=== PATIENT | female | born 1980 | race Hispanic/Latino ===

== ENCOUNTER 2018-03-12 17:43 | Inpatient (IN) | payer OTHER ==
--- NOTE | 2018-03-12 20:11 | Emergency Department Report ---
ED Chest Pain HPI - General Chief Complaint: Chest Pain Stated Complaint: CHEST PAIN Time Seen by Provider: 03/12/18 19:42 Source: patient, EMS Mode of arrival: Stretcher Limitations: No Limitations - History of Present Illness Initial Comments: 38-year-old female presents to the emergency department by EMS from home with complaint of a previous syncopal episode followed by chest pain. The patient says that she was walking around at home and passed out and woke up in her vomit and was incontinent of urine. Shortly after this she began having some midsternal to left-sided chest pain with some radiation towards the left shoulder and the left jaw that started around 4 PM this evening. EMS gave her 325 mg of aspirin and 2 sublingual nitroglycerin which improved but did not resolve her discomfort. She said earlier, prior to passing out, she "felt funny " and checked her blood sugar and it was about 240. She has a history of non- insulin dependent diabetes, Multiple sclerosis, hypertension. She also has a family history of early cardiac disease and says that her mother had her first heart attack in her 30s. She had a stress test many years ago but nothing recently. 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 She also complains of some associated diaphoresis. No recent travel or sick contacts at home. - Related Data Allergies Allergy/AdvReac Type Severity Reaction Status Date / Time Penicillins Allergy Unknown Verified 03/12/18 19:18 Heart Score - HEART Score History: Moderately suspicious EKG: Normal Age: < 45 Risk factors: > 3 risk factors or hx of atherosclerotic disease Troponin: < normal limit HEART Score: 3 - Critical Actions Critical Actions: 0-3 pts:0.9-1.7%risk of adverse cardiac event.Candidate for discharge ED Review of Systems ROS: Stated complaint: CHEST PAIN Other details as noted in HPI Comment: All other systems reviewed and negative Constitutional: denies: chills, fever Eyes: denies: eye pain, eye discharge, vision change ENT: denies: ear pain, throat pain Respiratory: denies: cough, wheezing Cardiovascular: chest pain, syncope Gastrointestinal: vomiting. denies: abdominal pain Genitourinary: denies: dysuria, discharge Musculoskeletal: arthralgia. denies: back pain Skin: denies: rash, lesions Neurological: denies: headache, weakness, paresthesias ED Past Medical Hx - Past Medical History Previous Medical History?: Yes Hx Hypertension: Yes Hx Diabetes: Yes - Surgical History Additional Surgical History: tonselectomy, gallbladder, wisdom teeth extraction - Social History Smoking Status: Never Smoker ED Physical Exam - General Limitations: No Limitations - Other Other exam information: GENERAL: The patient is well-developed well-nourished. HENT: Normocephalic. Atraumatic. Patient has moist mucous membranes. EYES: Extraocular motions are intact. Pupils equal reactive to light bilaterally. NECK: Supple. Trach is midline. CHEST/LUNGS: Clear to auscultation. There is no respiratory distress noted. HEART/CARDIOVASCULAR: Regular. There is no tachycardia. There is no murmur. ABDOMEN: Abdomen is soft, nontender. Patient has normal bowel sounds. Obese habitus. SKIN: Skin is warm and dry. Patient has some generalized urticaria. NEURO: The patient is awake, alert, and oriented. The patient is cooperative. The patient has no focal neurologic deficits. The patient has normal speech. MUSCULOSKELETAL: There is no tenderness or deformity. There is no limitation range of motion. There is no evidence of acute injury. ED Course Vital Signs 03/12/18 03/12/18 03/12/18 19:07 19:15 19:18 Temperature 98.9 F Pulse Rate 90 93 H Respiratory 15 16 Rate Blood Pressure 132/76 146/110 O2 Sat by Pulse 99 99 100 Oximetry 03/12/18 03/12/18 03/12/18 19:23 19:30 19:45 Temperature Pulse Rate 90 95 H Respiratory 19 26 H 15 Rate Blood Pressure 136/79 136/79 O2 Sat by Pulse 97 97 97 Oximetry 03/12/18 03/12/18 03/12/18 20:01 20:15 20:31 Temperature Pulse Rate 95 H 98 H 104 H Respiratory 24 14 12 Rate Blood Pressure 169/81 169/81 150/92 O2 Sat by Pulse 98 99 Oximetry 03/12/18 03/12/18 03/12/18 20:45 21:01 21:15 Temperature Pulse Rate 99 H 95 H 101 H Respiratory 18 13 20 Rate Blood Pressure 150/92 149/86 149/86 O2 Sat by Pulse 98 98 97 Oximetry 03/12/18 03/12/18 03/12/18 21:31 21:45 22:00 Temperature Pulse Rate 102 H 100 H 100 H Respiratory 16 16 27 H Rate Blood Pressure 133/76 133/76 133/76 O2 Sat by Pulse 99 98 96 Oximetry 03/12/18 03/12/18 03/12/18 22:15 22:31 22:45 Temperature Pulse Rate 105 H 93 H 104 H Respiratory 15 14 17 Rate Blood Pressure 133/76 135/51 135/51 O2 Sat by Pulse 99 96 97 Oximetry 03/12/18 03/12/18 03/12/18 23:01 23:15 23:30 Temperature Pulse Rate 113 H 101 H 104 H Respiratory 22 17 22 Rate Blood Pressure 135/51 135/51 135/51 O2 Sat by Pulse 99 98 Oximetry 03/13/18 00:01 Temperature Pulse Rate Respiratory Rate Blood Pressure 141/54 O2 Sat by Pulse 98 Oximetry TAMMI score - Tammi Score Age > 65: (0) No Aspirin use within the Past 7 Days: (0) No 3 or more CAD Risk Factors: (1) Yes 2 or more Angina events in past 24 hrs: (1) Yes Known CAD with more than 50% Stenosis: (0) No Elevated Cardiac Markers: (0) No ST Deviation Greater than 0.5mm: (0) No TAMMI Score: 2 ED Medical Decision Making - Lab Data Result diagrams: 03/12/18 19:47 03/12/18 19:47 - EKG Data -: EKG Interpreted by Me EKG shows normal: sinus rhythm, axis, intervals, QRS complexes, ST-T waves Rate: normal - EKG Data When compared to previous EKG there are: previous EKG unavailable Interpretation: normal EKG - Radiology Data Radiology results: image reviewed interpreted by me: Chest x-ray does not show any acute process. There are no pleural effusions, obvious pneumonia and there is no pneumothorax. - Medical Decision Making Patient had a syncopal episode in which she ended up in her own urine and vomited on the floor. She has no history of seizures but this could've been a seizure. However shortly after waking up she began having the chest pain which has continued through her ED course. EKG does not show any signs of ST elevation HI or ischemia or dysrhythmia. 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 Patient does appear to spontaneously develop some urticaria throughout her body. Negative d- dimer. Chest x-ray does not show any acute process. However the patient has a history of hypertension, diabetes and a family history of early coronary artery disease and cardiac events and her mother. She has not had any recent stress test. From all of these reasons patient has been admitted to the hospital for further evaluation and has been accepted for admission by the hospitalist, Dr Mendoza. - Differential Diagnosis HI, PE, Dysrythmia, MS, vasovagal, seizures Critical Care Time: No Critical care attestation.: If time is entered above; I have spent that time in minutes in the direct care of this critically ill patient, excluding procedure time. ED Disposition Clinical Impression: Syncope Qualifiers: Syncope type: unspecified Qualified Code(s): R55 - Syncope and collapse Chest pain Qualifiers: Chest pain type: unspecified Qualified Code(s): R07.9 - Chest pain, unspecified Disposition: 09 OP ADMIT IP TO THIS HOSP Is pt being admited?: Yes Condition: Stable Time of Disposition: 01:20
[2018-03-12 20:37] LABS: INR 0.81 (0.87-1.13); Partial Thromboplastin Time 26.4 Sec. (24.2-36.6)
[2018-03-12] MEDS ORDERED: MORPHINE IV ONE (20:50)
[2018-03-12 21:39] LABS: Hematocrit 41.2 % (30.3-42.9); Hemoglobin 13.8 gm/dl (10.1-14.3); Mean Corpuscular HGB Conc 34 % (30-34); Mean Corpuscular Hemoglobin 28 pg (28-32); Mean Corpuscular Volume 85 fl (79-97); Platelet Count 430 K/mm3 (140-440); Red Blood Count 4.85 M/mm3 (3.65-5.03); Red Cell Distribution Width 14.9 % (13.2-15.2)
[2018-03-12] MEDS ORDERED: BENADRYL ONE (21:46)
[2018-03-12 21:50] LABS: BUN/Creatinine Ratio 19; Blood Urea Nitrogen 13 mg/dL (7-17); Hemolysis Index 47
--- NOTE | 2018-03-12 21:55 | XRay Report ---
FINAL REPORT PROCEDURE: Chest. TECHNIQUE: Portable AP view. HISTORY: Chest pain. COMPARISON: No prior studies are available for comparison. FINDINGS: The heart and mediastinum appear normal. The lungs are clear and well expanded. There are no pleural effusions. The soft tissues and regional skeleton are unremarkable. IMPRESSION: Negative portable chest.
[2018-03-12 22:25] LABS: Basophils % (Manual) 0 % (0.0-1.8); Eosinophils % (Manual) 0 % (0.0-4.3); Large Platelets 1+; Platelet Estimate Consistent w Auto; RBC Morphology Normal; Total Cells Counted 100
[2018-03-12] MEDS ORDERED: PEPCID IV ONE (22:59)
[2018-03-12] MEDS ORDERED: BENADRYL IV ONE (23:03)
[2018-03-12] MEDS ORDERED: MORPHINE IV PRN (23:39)
[2018-03-12] MEDS ORDERED: ZOFRAN IV PRN (23:40)
[2018-03-12] MEDS ORDERED: TYLENOL PO PRN (23:40)
[2018-03-12] MEDS ORDERED: BENADRYL IV PRN (23:44)
[2018-03-12] MEDS ORDERED: NACL 0.9% 1000 ML 1,000 ML IV SCH (23:45)
[2018-03-12] MEDS ORDERED: HumuLIN R SUB-Q SCH (23:45)
[2018-03-12] MEDS ORDERED: D50W (25GM) Syringe IV PRN (23:47)
[2018-03-12] MEDS ORDERED: ATIVAN IV ONE (23:49)
[2018-03-13] MEDS: HEPARIN SUB-Q SCH ×2 (00:08→22:37)
[2018-03-13] MEDS: NITRO-BID 2% TP SCH ×5 (00:10→19:05)
[2018-03-13 02:17] LABS: Creatine Kinase MB 1.1 ng/mL (0.0-4.0)
[2018-03-13] MEDS: HumuLIN R SUB-Q SCH ×5 (03:36→22:55)
[2018-03-13 08:54] LABS: Creatine Kinase MB 1.1 ng/mL (0.0-4.0)
[2018-03-13] MEDS ORDERED: LEXISCAN IV NR (09:45)
[2018-03-13] MEDS ORDERED: NACL 0.9% 1000 ML 1,000 ML IV SCH (10:00)
--- NOTE | 2018-03-13 12:58 | Cat Scan Report ---
CT HEAD WITHOUT CONTRAST: HISTORY: Syncope. TECHNIQUE: Sequential 2.5mm CT images. COMPARISON: none. FINDINGS: Cerebral Parenchyma: Within normal limits. Cerebellum: Within normal limits. Brainstem: Within normal limits. Ventricles: Normal. Sella: Normal. Extra-axial spaces: Normal. Basal Cisterns: Normal. Intracranial Hemorrhage: None. Midline Shift: None. Calvarium: Normal. Sinuses: Normal. Mastoid Air Cells: Normal. Visualized Orbits: Normal. IMPRESSION: Cranial CT scan within normal limits.
[2018-03-13] MEDS: ASPIRIN PO SCH (15:11)
[2018-03-13] MEDS: MORPHINE IV PRN (15:15)
--- NOTE | 2018-03-13 16:18 | Consultation ---
History of Present Illness Consult date: 03/13/18 Requesting physician: PHIL MILLER Reason for Consult: syncope with incontinence Chief complaint: syncope with incontinence History of present illness: This 38-year-old right-handed white female per ER MD: "says that she was walking around at home and passed out and woke up in her vomit and was incontinent of urine. Shortly after this she began having some midsternal to left-sided chest pain with some radiation towards the left shoulder and the left jaw that started around 4 PM this evening. EMS gave her 325 mg of aspirin and 2 sublingual nitroglycerin which improved but did not resolve her discomfort. She said earlier, prior to passing out, she "felt funny" and checked her blood sugar and it was about 240. She has a history of non-insulin dependent diabetes, Multiple sclerosis, hypertension. She also has a family history of early cardiac disease and says that her mother had her first heart attack in her 30s. She had a stress test many years ago but nothing recently. 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 She also complains of some associated diaphoresis. No recent travel or sick contacts at home." Says she had blurred vision for 2 days and yesterday felt funny and found her glucose was high, got up to go to the bathroom to urinate and had graying out of her vision and blacked out with vomiting and incontinence. She has fainted in the past perhaps to low blood sugar over a year ago. Blood pressure at home is usually been 120/60 but was 180 systolic she says yesterday in the ER. She says the pain in the chest felt like someone kicked her and she still had the pain until 1 AM this morning. She has a diagnosis of MS with her last attack 3 months ago when she could not walk or see and was told she had optic neuritis and was treated for 4 days with intravenous steroids at [facility]. MS was diagnosed in 2000 when she fell because her legs gave out. LP was positive. She was treated with IV steroids then and several other times over the years. She's been on multiple MS medications in the past including Avonex, Betaseron and Copaxone and lost her insurance 10 years ago. She thinks she did best on Copaxone which got rid of jerking in the legs. Brain CT scan shows only mild atrophy. Takes probiotic, multipack vitamin and turmeric. 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 denies: alcohol abuse (thanks alcohol once or twice a year), prescription drug abuse, IV drug use (marijuana in the past but not recently) Family history: stroke (in her mother), other (no MS or other neuromuscular disease. Epilepsy in her mother.) Medications and Allergies Allergies Allergy/AdvReac Type Severity Reaction Status Date / Time Penicillins Allergy Unknown Verified 03/12/18 19:18 Home Medications Medication Instructions Recorded Confirmed Last Taken Type No Known Home Medications [No 03/13/18 03/13/18 Unknown History Reported Home Medications] Active Meds: Active Medications Acetaminophen (Tylenol) 650 mg PO Q4H PRN PRN Reason: For Pain/Fever/Headache Aspirin (Aspirin) 325 mg PO QDAY [facility] Last Admin: 03/13/18 15:11 Dose: 325 mg Dextrose (D50w (25gm) Syringe) 50 ml IV PRN PRN PRN Reason: Hypoglycemia Diphenhydramine HCl (Benadryl) 25 mg IV Q6H PRN PRN Reason: Rash Last Admin: 03/13/18 00:10 Dose: 25 mg Heparin Sodium (Porcine) (Heparin) 5,000 unit SUB-Q Q12HR [facility] Last Admin: 03/13/18 00:08 Dose: 5,000 unit Sodium Chloride (Nacl 0.9% 1000 Ml) 1,000 mls @ 999 mls/hr IV DIRECT [facility] Insulin Human Regular (Humulin R) 0 units SUB-Q Q4HR [facility]; Protocol Last Admin: 03/13/18 06:54 Dose: Not Given Methylprednisolone Sodium Succinate (Solu-Medrol) 60 mg IV Q8HR [facility] Last Admin: 03/13/18 15:12 Dose: 60 mg Morphine Sulfate (Morphine) 2 mg IV Q5MIN PRN PRN Reason: Chest Pain Last Admin: 03/13/18 00:10 Dose: 2 mg Nitroglycerin (Nitro-Bid 2%) 0.5 inch TP QIDNTG [facility]; Protocol Last Admin: 03/13/18 15:11 Dose: 0.5 inch Ondansetron HCl (Zofran) 4 mg IV Q8H PRN PRN Reason: Nausea And Vomiting Review of Systems All systems: negative (vital headaches with nausea and photophobia about every 2 weeks for which she takes ibuprofen but in the past had success using Maxalt. No dizziness or snoring though naps 10 to 180 min at times but not daily, not dozing off other times, not sleepy driving. Leg jerks at times during the day. Some short-term memory and remote memory problems for the past 5 years. He has had some left leg spasms for 6 months.) Physical Examination - Vital Signs Vital Signs: Vital Signs Pulse Ox 99 03/12/18 19:07 - Physical Exam Narrative exam: General Appearance: well developed and moderately obese (per BMI) early 40s white female in [facility], seen with her friend and the friend's daughter. HEENT: atraumatic, normocephalic; no bruits, 2+ Luke without soreness or induration or enlargement, sclerae nonicteric. Oropharynx pink and moist. Neck: supple, no bruits. Heart: no murmur or extra sounds. Extremities: no clubbing, cyanosis or edema. 2+ dorsalis pedis pulses bilaterally. Neurologic Exam: Mental Status: Awake, alert, oriented X 3 though initially gives the year as 2019 and corrects it when I echo her 2019, speech is clear, names pen and tip of pen, and abstracts well. Names President and after Kalen gives Secretary Office Clerk , no right-left confusion, gets 2 of 3 objects at 3 minutes, spells WORLD backwards correctly. Cranial Nerves: peacock full left eye but cannot even see hand waving in the right eye due to the previous optic neuritis she said, no papilledema and disks are not pale, SVPs present, right pupil larger than left but both react to light and to accommodation without Vanessa's, EOMs full without nystagmus or diplopia, facial sensation decreased to light touch on the right but intact to pinprick, no facial weakness, Gipson is midline, palate rises symmetrically to phonation OR gags are positive, shoulder shrug is 5 X 2, tongue protrudes midline. Cerebellar: finger to nose and heel to cullen are normal. Sensory: Decreased to light touch on the right, pinprick decreased below elbows and right leg, absent vibrations right foot. Double simultaneous stimulation is intact. Motor Exam Upper Extremities: no drift or pronation, Manuel intact. Analytical Tech are 5 X 2, tone is normal. No atrophy or fasciculations are noted visually. Motor Exam Lower Extremities: no leg lag, quadriceps and anterior tibials and gastrocnemius are 5 left and 4+ right. Manuel are slow bilaterally but especially on the left. Tone is normal. No atrophy or fasciculations are noted visually. Reflexes: Palmomental and snout are negative but jaw jerk is positive. Triceps , biceps and brachioradialis are 2+ bilaterally. Kenisha's is negative bilaterally. Knee jerks are 2+ and ankle jerks are 2 bilaterally without clonus. Toes are upgoing right and slightly upgoing left to Babinski testing. Results - Laboratory Findings CBC and BMP: 03/12/18 19:47 03/12/18 19:47 Abnormal Lab Findings: Abnormal Labs 03/12/18 03/12/18 03/12/18 19:47 19:47 20:02 WBC 18.0 H Monocytes % (Manual) 9.0 H Seg Neutrophils # Man 11.0 H Monocytes # (Manual) 1.6 H PT 11.6 L INR 0.81 L Carbon Dioxide 20 L POC Glucose 03/13/18 03/13/18 03/13/18 02:34 06:29 12:28 WBC Monocytes % (Manual) Seg Neutrophils # Man Monocytes # (Manual) PT INR Carbon Dioxide POC Glucose 204 H 208 H 200 H Assessment and Plan Impression: 1. Syncope 2. Multiple sclerosis, relapsing remitting Plan: 1. Suggest cardiology consultation for syncope. May need 48 hour Holter or even 30 day event monitoring. 2. I have ordered EEG. Will add EEG preliminary reading in separate report. I told her if epileptiform, would start an antiepileptic drug (AED). 3. I have ordered MRI noncontrast. 4. Ordered vitamin D 25-OH since goal in MS is to get level to 80 or more for prevention of MS attacks. I told her if discharged, to take OTC 5000 unit vitamin D3 daily. 45 minutes spent today with this patient including discussion of use of vitamin D while not having insurance. Thank you for an interesting consultation on this pleasant early 40s lady. Will sign off, call if unusual brain MRI findings or unusual echo findings. Should be referred as outpatient to a neurologist at least if she gets disability coverage.
[2018-03-13] MEDS ORDERED: PROAIR IH PRN (16:45)
--- NOTE | 2018-03-13 16:49 | Progress Note ---
Assessment and Plan Assessment and plan: 38-year-old female with past medical history significant for diabetes mellitus, MS presented to the emergency department with complaints of passed out , woke up on her stool, patient was incontinent to urine at that time. patient said had mild confusion after that. Her BF called 911 and she presented to [facility]. patient also complains substernal chest pain Syncope/passed out - Could be seizure, vasovagal or MS flare, patient is on IV Solu-Medrol - CT head was negative, neurology consulted and ordered EEG, MRI/MRA - We'll follow the results Chest pain - Cardiac enzymes are negative - EKG normal sinus rhythm, stress test is pending Diabetes mellitus - Continue sliding scale insulin, ADA diet, adjust as needed Leukocytosis - Could be reactive or steroid-induced - We'll follow DVT prophylaxis - Heparin History Interval history: Patient was seen and evaluated, patient said she still feels some tightness in the chest Hospitalist Physical - Physical exam Narrative exam: Not in cardiopulmonary distress. The patient is obese. Vital signs as documented. Head exam is unremarkable. No scleral icterus . Neck is without jugular venous distension, thyromegaly, or carotid bruits. Lungs are clear to auscultation. Cardiac exam reveals regular rate and Rhythm. First and second heart sounds normal. No murmurs, rubs or gallops. Abdominal exam reveals normal bowel sounds, no masses, no organomegaly and no aortic enlargement. Extremities are nonedematous and both femoral and pedal pulses are normal. CAT SCAN TECH: Alert and oriented 3. No focal weakness. - Constitutional Vitals: Temp Pulse Resp BP Pulse Ox 98.2 F 85 20 104/60 97 03/13/18 15:31 03/13/18 15:31 03/13/18 15:31 03/13/18 15:31 03/13/18 15:31 Results - Labs CBC & Chem 7: 03/12/18 19:47 03/12/18 19:47 Labs: Laboratory Last Values WBC 18.0 K/mm3 (4.5-11.0) H 03/12/18 19:47 RBC 4.85 M/mm3 (3.65-5.03) 03/12/18 19:47 Hgb 13.8 gm/dl (10.1-14.3) 03/12/18 19:47 Hct 41.2 % (30.3-42.9) 03/12/18 19:47 MCV 85 fl (79-97) 03/12/18 19:47 MCH 28 pg (28-32) 03/12/18 19:47 MCHC 34 % (30-34) 03/12/18 19:47 RDW 14.9 % (13.2-15.2) 03/12/18 19:47 Plt Count 430 K/mm3 (140-440) 03/12/18 19:47 Lymph % (Auto) Medical Director Occupational Health 03/12/18 19:47 Johnston % (Auto) Medical Director Occupational Health 03/12/18 19:47 Eos % (Auto) Medical Director Occupational Health 03/12/18 19:47 Baso % (Auto) Medical Director Occupational Health 03/12/18 19:47 Lymph # Medical Director Occupational Health 03/12/18 19:47 Johnston # Medical Director Occupational Health 03/12/18 19:47 Eos # Medical Director Occupational Health 03/12/18 19:47 Baso # Medical Director Occupational Health 03/12/18 19:47 Add Manual Diff Complete 03/12/18 19:47 Total Counted 100 03/12/18 19:47 Seg Neutrophils % Medical Director Occupational Health 03/12/18 19:47 Seg Neuts % (Manual) 61.0 % (40.0-70.0) 03/12/18 19:47 Band Neutrophils % 0 % 03/12/18 19:47 Lymphocytes % (Manual) 30.0 % (13.4-35.0) 03/12/18 19:47 Reactive Lymphs % (Man) 0 % 03/12/18 19:47 Monocytes % (Manual) 9.0 % (0.0-7.3) H 03/12/18 19:47 Eosinophils % (Manual) 0 % (0.0-4.3) 03/12/18 19:47 Basophils % (Manual) 0 % (0.0-1.8) 03/12/18 19:47 Metamyelocytes % 0 % 03/12/18 19:47 Myelocytes % 0 % 03/12/18 19:47 Promyelocytes % 0 % 03/12/18 19:47 Blast Cells % 0 % 03/12/18 19:47 Nucleated RBC % Not Reportable 03/12/18 19:47 Seg Neutrophils # Medical Director Occupational Health 03/12/18 19:47 Seg Neutrophils # Man 11.0 K/mm3 (1.8-7.7) H 03/12/18 19:47 Band Neutrophils # 0.0 K/mm3 03/12/18 19:47 Lymphocytes # (Manual) 5.4 K/mm3 (1.2-5.4) 03/12/18 19:47 Abs React Lymphs (Man) 0.0 K/mm3 03/12/18 19:47 Monocytes # (Manual) 1.6 K/mm3 (0.0-0.8) H 03/12/18 19:47 Eosinophils # (Manual) 0.0 K/mm3 (0.0-0.4) 03/12/18 19:47 Basophils # (Manual) 0.0 K/mm3 (0.0-0.1) 03/12/18 19:47 Metamyelocytes # 0.0 K/mm3 03/12/18 19:47 Myelocytes # 0.0 K/mm3 03/12/18 19:47 Promyelocytes # 0.0 K/mm3 03/12/18 19:47 Blast Cells # 0.0 K/mm3 03/12/18 19:47 WBC Morphology Not Reportable 03/12/18 19:47 Hypersegmented Neuts Not Reportable 03/12/18 19:47 Hyposegmented Neuts Not Reportable 03/12/18 19:47 Hypogranular Neuts Not Reportable 03/12/18 19:47 Smudge Cells Not Reportable 03/12/18 19:47 Toxic Granulation Not Reportable 03/12/18 19:47 Toxic Vacuolation Not Reportable 03/12/18 19:47 Dohle Bodies Not Reportable 03/12/18 19:47 Pelger-Huet Anomaly Not Reportable 03/12/18 19:47 Peyman Rods Not Reportable 03/12/18 19:47 Platelet Estimate Consistent w auto 03/12/18 19:47 Clumped Platelets Not Reportable 03/12/18 19:47 Plt Clumps, EDTA Not Reportable 03/12/18 19:47 Large Platelets 1+ 03/12/18 19:47 Giant Platelets Not Reportable 03/12/18 19:47 Platelet Satelliting Not Reportable 03/12/18 19:47 Plt Morphology Comment Not Reportable 03/12/18 19:47 RBC Morphology Normal 03/12/18 19:47 Dimorphic RBCs Not Reportable 03/12/18 19:47 Polychromasia Not Reportable 03/12/18 19:47 Hypochromasia Not Reportable 03/12/18 19:47 Poikilocytosis Not Reportable 03/12/18 19:47 Anisocytosis Not Reportable 03/12/18 19:47 Microcytosis Not Reportable 03/12/18 19:47 Macrocytosis Not Reportable 03/12/18 19:47 Spherocytes Not Reportable 03/12/18 19:47 Pappenheimer Bodies Not Reportable 03/12/18 19:47 Sickle Cells Not Reportable 03/12/18 19:47 Target Cells Not Reportable 03/12/18 19:47 Tear Drop Cells Not Reportable 03/12/18 19:47 Ovalocytes Not Reportable 03/12/18 19:47 Helmet Cells Not Reportable 03/12/18 19:47 Felipe-Chenoweth Bodies Not Reportable 03/12/18 19:47 Derry Rings Not Reportable 03/12/18 19:47 Fletcher Cells Not Reportable 03/12/18 19:47 Bite Cells Not Reportable 03/12/18 19:47 Crenated Cell Not Reportable 03/12/18 19:47 Elliptocytes Not Reportable 03/12/18 19:47 Acanthocytes (Spur) Not Reportable 03/12/18 19:47 Rouleaux Not Reportable 03/12/18 19:47 Hemoglobin C Crystals Not Reportable 03/12/18 19:47 Schistocytes Not Reportable 03/12/18 19:47 Malaria parasites Not Reportable 03/12/18 19:47 Brian Bodies Not Reportable 03/12/18 19:47 Hem Pathologist Commnt No 03/12/18 19:47 PT 11.6 Sec. (12.2-14.9) L 03/12/18 20:02 INR 0.81 (0.87-1.13) L 03/12/18 20:02 APTT 26.4 Sec. (24.2-36.6) 03/12/18 20:02 D-Dimer < 135.0 ng/mlDDU (0-234) 03/12/18 20:57 Sodium 140 mmol/L (137-145) 03/12/18 19:47 Potassium 4.1 mmol/L (3.6-5.0) 03/12/18 19:47 Chloride 102.7 mmol/L (98-107) 03/12/18 19:47 Carbon Dioxide 20 mmol/L (22-30) L 03/12/18 19:47 Anion Gap 21 mmol/L 03/12/18 19:47 BUN 13 mg/dL (7-17) 03/12/18 19:47 Creatinine 0.7 mg/dL (0.7-1.2) 03/12/18 19:47 Estimated GFR > 60 ml/min 03/12/18 19:47 BUN/Creatinine Ratio 19 % 03/12/18 19:47 Glucose 89 mg/dL (65-100) 03/12/18 19:47 POC Glucose 169 (70-105) H 03/13/18 16:13 Calcium 9.0 mg/dL (8.4-10.2) 03/12/18 19:47 Total Creatine Kinase 47 units/L (30-135) 03/13/18 08:03 CK-MB (CK-2) 1.1 ng/mL (0.0-4.0) 03/13/18 08:03 CK-MB (CK-2) Rel Index 2.3 (0-4) 03/13/18 08:03 Troponin T < 0.010 ng/mL (0.00-0.029) 03/13/18 08:03
[2018-03-13] MEDS ORDERED: PROVENTIL IH PRN (17:00)
--- NOTE | 2018-03-13 17:02 | Electroencephalogram Report ---
Electroencephalogram EEG Date of exam: 03/13/18 Description: There is 9-10 Hz alpha activity in the posterior leads and some anterior beta activity. Eye movement artifacts are seen. No epileptiform activity. Interpretation: EEG preliminary reading: normal waking EEG.
[2018-03-13] MEDS: HABITROL TD SCH (17:42)
[2018-03-13] MEDS ORDERED: XANAX PO ONE (18:10)
[2018-03-14] MEDS: HumuLIN R SUB-Q SCH ×5 (02:30→22:50)
[2018-03-14] MEDS: NITRO-BID 2% TP SCH ×4 (06:44→19:48)
[2018-03-14 07:07] LABS: Basophils # (Auto) 0.1 K/mm3 (0.0-0.1); Basophils % (Auto) 0.5 % (0.0-1.8); Hemoglobin 12.8 gm/dl (10.1-14.3); Lymphocytes # (Auto) 1.5 K/mm3 (1.2-5.4); Lymphocytes % (Auto) 8.2 % (13.4-35.0); Mean Corpuscular HGB Conc 34 % (30-34); Mean Corpuscular Hemoglobin 28 pg (28-32); Mean Corpuscular Volume 84 fl (79-97); Monocytes # (Auto) 0.5 K/mm3 (0.0-0.8); Monocytes % (Auto) 2.6 % (0.0-7.3); Platelet Count 379 K/mm3 (140-440); Red Blood Count 4.51 M/mm3 (3.65-5.03); Red Cell Distribution Width 14.8 % (13.2-15.2)
[2018-03-14 07:36] LABS: BUN/Creatinine Ratio 24; Blood Urea Nitrogen 12 mg/dL (7-17); Calcium 8.6 mg/dL (8.4-10.2); Hemolysis Index 2
--- NOTE | 2018-03-14 08:57 | Treadmill Report ---
STRESS TEST ORDERING PHYSICIAN: Dr. Damion Ferrara. INDICATION: Chest pain. FINDINGS: There is no scintigraphic evidence of myocardial ischemia. The left ventricle is normal in size and systolic function. The left ventricular ejection fraction is measured at 62%. Normal wall motion and wall thickening is noted on gated imaging. CONCLUSION: Normal perfusion scan. MTDD
[2018-03-14] MEDS: ASPIRIN PO SCH (09:20)
[2018-03-14] MEDS: HABITROL TD SCH (09:20)
[2018-03-14] MEDS: HEPARIN SUB-Q SCH ×2 (09:20→22:50)
[2018-03-14] MEDS: MORPHINE IV PRN ×2 (12:22→18:45)
[2018-03-14] MEDS ORDERED: ATIVAN IV NR (13:02)
--- NOTE | 2018-03-14 15:30 | Magnetic Resonance Report ---
MRI BRAIN WITHOUT CONTRAST: 03/12/18 23:30:00 CLINICAL: History of MS. Syncopal episode. TECHNIQUE: Axial diffusion, T1, T2, gradient echo T2*, coronal and axial FLAIR, and sagittal T1 sequences on a 1.5 Katie magnet. FINDINGS: The ventricles are normal size. Mild enlargement of frontal and temporal lobe sulci.. No restricted diffusion and no abnormal signal. No mass or mass effect. No hemorrhage, edema or extra-axial collection. Normal pituitary and optic chiasm. The brainstem and cerebellum are normal. Intact vascular flow voids. Normal sinuses. The orbits, and soft tissues are normal. Normal calvarium and skull base. IMPRESSION: 1. Mild frontal and temporal lobe cortical atrophy. 2. No acute change. 3. No MS lesions identified.
--- NOTE | 2018-03-14 17:03 | Progress Note ---
Assessment and Plan Assessment and plan: 38-year-old female with past medical history significant for diabetes mellitus, MS presented to the emergency department with complaints of passed out , woke up on her stool, patient was incontinent to urine at that time. patient said had mild confusion after that. Her BF called 911 and she presented to [facility]. patient also complains substernal chest pain Syncope/passed out - Could be seizure, vasovagal or MS flare, patient is on IV Solu-Medrol - CT head was negative, neurology consulted and ordered EEG, MRI/MRA - EEG showed no seizure activity - Neurology recommended cardiac cause of syncope and cardiology consulted. Chest pain - Cardiac enzymes are negative - EKG normal sinus rhythm, stress test is pending Diabetes mellitus - Continue sliding scale insulin, ADA diet, adjust as needed Leukocytosis - Could be reactive or steroid-induced - We'll follow DVT prophylaxis - Heparin History Interval history: Patient was seen and evaluated, patient denied chest pain, or syncope after admission. Hospitalist Physical - Physical exam Narrative exam: Not in cardiopulmonary distress. The patient is obese. Vital signs as documented. Head exam is unremarkable. No scleral icterus . Neck is without jugular venous distension, thyromegaly, or carotid bruits. Lungs are clear to auscultation. Cardiac exam reveals regular rate and Rhythm. First and second heart sounds normal. No murmurs, rubs or gallops. Abdominal exam reveals normal bowel sounds, no masses, no organomegaly and no aortic enlargement. Extremities are nonedematous and both femoral and pedal pulses are normal. MATERIAL PLANNING ANALYST: Alert and oriented 3. No focal weakness. - Constitutional Vitals: Temp Pulse Resp BP Pulse Ox 98.6 F 68 20 114/76 95 03/14/18 08:36 03/14/18 16:00 03/14/18 08:36 03/14/18 09:21 03/14/18 08:36 Results - Labs CBC & Chem 7: 03/14/18 06:32 03/14/18 06:27 Labs: Laboratory Last Values WBC 18.4 K/mm3 (4.5-11.0) H 03/14/18 06:32 RBC 4.51 M/mm3 (3.65-5.03) 03/14/18 06:32 Hgb 12.8 gm/dl (10.1-14.3) 03/14/18 06:32 Hct 38.0 % (30.3-42.9) 03/14/18 06:32 MCV 84 fl (79-97) 03/14/18 06:32 MCH 28 pg (28-32) 03/14/18 06:32 MCHC 34 % (30-34) 03/14/18 06:32 RDW 14.8 % (13.2-15.2) 03/14/18 06:32 Plt Count 379 K/mm3 (140-440) 03/14/18 06:32 Lymph % (Auto) 8.2 % (13.4-35.0) L 03/14/18 06:32 Dewitt % (Auto) 2.6 % (0.0-7.3) 03/14/18 06:32 Eos % (Auto) 0.0 % (0.0-4.3) 03/14/18 06:32 Baso % (Auto) 0.5 % (0.0-1.8) 03/14/18 06:32 Lymph # 1.5 K/mm3 (1.2-5.4) 03/14/18 06:32 Dewitt # 0.5 K/mm3 (0.0-0.8) 03/14/18 06:32 Eos # 0.0 K/mm3 (0.0-0.4) 03/14/18 06:32 Baso # 0.1 K/mm3 (0.0-0.1) 03/14/18 06:32 Add Manual Diff Complete 03/12/18 19:47 Total Counted 100 03/12/18 19:47 Seg Neutrophils % 88.7 % (40.0-70.0) H 03/14/18 06:32 Seg Neuts % (Manual) 61.0 % (40.0-70.0) 03/12/18 19:47 Band Neutrophils % 0 % 03/12/18 19:47 Lymphocytes % (Manual) 30.0 % (13.4-35.0) 03/12/18 19:47 Reactive Lymphs % (Man) 0 % 03/12/18 19:47 Monocytes % (Manual) 9.0 % (0.0-7.3) H 03/12/18 19:47 Eosinophils % (Manual) 0 % (0.0-4.3) 03/12/18 19:47 Basophils % (Manual) 0 % (0.0-1.8) 03/12/18 19:47 Metamyelocytes % 0 % 03/12/18 19:47 Myelocytes % 0 % 03/12/18 19:47 Promyelocytes % 0 % 03/12/18 19:47 Blast Cells % 0 % 03/12/18 19:47 Nucleated RBC % Not Reportable 03/12/18 19:47 Seg Neutrophils # 16.3 K/mm3 (1.8-7.7) H 03/14/18 06:32 Seg Neutrophils # Man 11.0 K/mm3 (1.8-7.7) H 03/12/18 19:47 Band Neutrophils # 0.0 K/mm3 03/12/18 19:47 Lymphocytes # (Manual) 5.4 K/mm3 (1.2-5.4) 03/12/18 19:47 Abs React Lymphs (Man) 0.0 K/mm3 03/12/18 19:47 Monocytes # (Manual) 1.6 K/mm3 (0.0-0.8) H 03/12/18 19:47 Eosinophils # (Manual) 0.0 K/mm3 (0.0-0.4) 03/12/18 19:47 Basophils # (Manual) 0.0 K/mm3 (0.0-0.1) 03/12/18 19:47 Metamyelocytes # 0.0 K/mm3 03/12/18 19:47 Myelocytes # 0.0 K/mm3 03/12/18 19:47 Promyelocytes # 0.0 K/mm3 03/12/18 19:47 Blast Cells # 0.0 K/mm3 03/12/18 19:47 WBC Morphology Not Reportable 03/12/18 19:47 Hypersegmented Neuts Not Reportable 03/12/18 19:47 Hyposegmented Neuts Not Reportable 03/12/18 19:47 Hypogranular Neuts Not Reportable 03/12/18 19:47 Smudge Cells Not Reportable 03/12/18 19:47 Toxic Granulation Not Reportable 03/12/18 19:47 Toxic Vacuolation Not Reportable 03/12/18 19:47 Dohle Bodies Not Reportable 03/12/18 19:47 Pelger-Huet Anomaly Not Reportable 03/12/18 19:47 Peyman Rods Not Reportable 03/12/18 19:47 Platelet Estimate Consistent w auto 03/12/18 19:47 Clumped Platelets Not Reportable 03/12/18 19:47 Plt Clumps, EDTA Not Reportable 03/12/18 19:47 Large Platelets 1+ 03/12/18 19:47 Giant Platelets Not Reportable 03/12/18 19:47 Platelet Satelliting Not Reportable 03/12/18 19:47 Plt Morphology Comment Not Reportable 03/12/18 19:47 RBC Morphology Normal 03/12/18 19:47 Dimorphic RBCs Not Reportable 03/12/18 19:47 Polychromasia Not Reportable 03/12/18 19:47 Hypochromasia Not Reportable 03/12/18 19:47 Poikilocytosis Not Reportable 03/12/18 19:47 Anisocytosis Not Reportable 03/12/18 19:47 Microcytosis Not Reportable 03/12/18 19:47 Macrocytosis Not Reportable 03/12/18 19:47 Spherocytes Not Reportable 03/12/18 19:47 Pappenheimer Bodies Not Reportable 03/12/18 19:47 Sickle Cells Not Reportable 03/12/18 19:47 Target Cells Not Reportable 03/12/18 19:47 Tear Drop Cells Not Reportable 03/12/18 19:47 Ovalocytes Not Reportable 03/12/18 19:47 Helmet Cells Not Reportable 03/12/18 19:47 Felipe-[place]garden Bodies Not Reportable 03/12/18 19:47 [place] Rings Not Reportable 03/12/18 19:47 [place] Cells Not Reportable 03/12/18 19:47 Bite Cells Not Reportable 03/12/18 19:47 Crenated Cell Not Reportable 03/12/18 19:47 Elliptocytes Not Reportable 03/12/18 19:47 Acanthocytes (Spur) Not Reportable 03/12/18 19:47 Rouleaux Not Reportable 03/12/18 19:47 Hemoglobin C Crystals Not Reportable 03/12/18 19:47 Schistocytes Not Reportable 03/12/18 19:47 Malaria parasites Not Reportable 03/12/18 19:47 Brian Bodies Not Reportable 03/12/18 19:47 Hem Pathologist Commnt No 03/12/18 19:47 PT 11.6 Sec. (12.2-14.9) L 03/12/18 20:02 INR 0.81 (0.87-1.13) L 03/12/18 20:02 APTT 26.4 Sec. (24.2-36.6) 03/12/18 20:02 D-Dimer < 135.0 ng/mlDDU (0-234) 03/12/18 20:57 Sodium 125 mmol/L (137-145) L D 03/14/18 06:27 Potassium 3.6 mmol/L (3.6-5.0) 03/14/18 06:27 Chloride 93.4 mmol/L (98-107) L 03/14/18 06:27 Carbon Dioxide 24 mmol/L (22-30) 03/14/18 06:27 Anion Gap 11 mmol/L 03/14/18 06:27 BUN 12 mg/dL (7-17) 03/14/18 06:27 Creatinine 0.5 mg/dL (0.7-1.2) L 03/14/18 06:27 Estimated GFR > 60 ml/min 03/14/18 06:27 BUN/Creatinine Ratio 24 % 03/14/18 06:27 Glucose 215 mg/dL (65-100) H 03/14/18 06:27 POC Glucose 214 (70-105) H 03/14/18 12:12 Calcium 8.6 mg/dL (8.4-10.2) 03/14/18 06:27 Total Creatine Kinase 47 units/L (30-135) 03/13/18 08:03 CK-MB (CK-2) 1.1 ng/mL (0.0-4.0) 03/13/18 08:03 CK-MB (CK-2) Rel Index 2.3 (0-4) 03/13/18 08:03 Troponin T < 0.010 ng/mL (0.00-0.029) 03/13/18 08:03
[2018-03-14] MEDS ORDERED: LANTUS SUB-Q SCH (22:00)
[2018-03-15] MEDS: HumuLIN R SUB-Q SCH ×3 (02:00→06:59)
--- NOTE | 2018-03-15 05:15 | History and Physical Report ---
CHIEF COMPLAINT: Chest pain. OTHER COMPLAINT: Include syncopal attack. HISTORY OF PRESENT ILLNESS: The patient is a 38-year-old female who said she had a syncopal attack at home, said she was walking around the room and passed out and woke up in vomitus and was also incontinent of urine. Shortly after the syncopal attack, she started having midsternal to left sided chest pain radiating towards the left shoulder, left joint area. There was no history of fever or chills. There was also no history of cough, also the patient said that there was associated diaphoresis, denied history of shortness of breath and stated that she has been receiving treatment for the last few weeks for allergic reaction of unknown cause, which caused some skin hives all over her body and has been taking prednisone for this allergic reaction. PAST MEDICAL HISTORY: Pertinent for hypertension, diabetes mellitus, allergic reaction of unknown cause, multiple sclerosis. PAST SURGICAL HISTORY: Pertinent for tonsillectomy, gallbladder removal, wisdom teeth extraction. FAMILY HISTORY: There is family history of coronary artery disease in her mother at an early age. SOCIAL HISTORY: The patient does not smoke, does not drink alcohol and does not use illicit drugs. MEDICATIONS: The patient can only remember taking prednisolone in tapering doses and also the patient states she is on metformin, dose unknown. ALLERGIES: THE PATIENT IS ALLERGIC TO PENICILLIN. REVIEW OF SYSTEMS: CONSTITUTIONAL: There is no fever, no chills. Diaphoresis present. HEENT: There is no headache or sore throat. CARDIOVASCULAR: Chest pain is present. No orthopnea. RESPIRATORY: There is no shortness of breath and there is no cough. GASTROINTESTINAL: There is nausea and vomiting but no abdominal pain, no diarrhea or constipation. NEUROLOGICAL SYSTEM: There is no numbness, no dizziness. There is altered mental status and there is syncopal attack. MUSCULOSKELETAL SYSTEM: There is no joint pain or swelling. DERMATOLOGICAL SYSTEM: There is no skin rash or itching. GENITOURINARY: There is no dysuria or hematuria. There was history of urinary incontinence during the syncopal attack. The rest of system review is normal. PHYSICAL EXAMINATION: GENERAL: At the time of exam, the patient was found to be alert, oriented x 3 and not in acute distress. VITAL SIGNS: Shows initially a temperature of 98.9 degrees Fahrenheit, pulse of 93, respiration 16, blood pressure of 146/110, with blood pressure going back down to about 136/79. HEENT: Showed pupils to be equal, round, reactive to light and accommodation. Extraocular muscles are intact. NECK: Supple with no JVD or carotid bruit. CARDIOVASCULAR: Showed normal first and second heart sounds with no gallops or murmurs. RESPIRATORY: Show good air entry on both sides of the lung with no abnormal breath sounds. GASTROINTESTINAL SYSTEM: Show abdomen to be full, soft, nontender with no organomegaly or rigidity. NEUROLOGICAL: Shows no focal deficit. MUSCULOSKELETAL: Show no joint swelling or tenderness. DERMATOLOGICAL: Show scattered skin rashes with some remnant hives on the skin. GENITOURINARY: Show no costovertebral angle tenderness. PERTINENT LABORATORY DATA AND IMAGING STUDIES: The patient has CBC done with elevated white count of 18,000 with normal hemoglobin, normal hematocrit. CBC differential showing elevated monocyte count of 9% and elevated segmented neutrophils as well. The patient's coagulation studies were unremarkable. D-dimer was unremarkable. The patient's chemistry was unremarkable except for slight decrease in CO2 of 20. The patient's cardiac enzymes, troponin came back normal. IMAGING STUDIES: The patient's early imaging studies reported as chest x-ray that shows negative portable chest exam. DIAGNOSES: 1. Syncopal attack. 2. Chest pain. CARE OF PLAN: 1. The patient will be admitted to telemetry. 2. The patient will have cardiac enzymes involving troponin, total CK, and CK-MB checked every 6 hours x 2 more levels. The patient will be n.p.o. after midnight of 03/12/2018 and will have Lexiscan stress test done in the morning of 03/13/2018. The patient will have Accu-Chek every 4 hours followed by sliding scale using low dose regular insulin coverage. The patient will be on Tylenol 650 mg by mouth every 4 hours for fever, headache and aspirin 325 mg by mouth daily. The patient will be on IV Solu-Medrol 60 mg every 8 hours for treatment of allergic reaction which she developed prior to coming to the Emergency Room. Also, the patient will be on IV Benadryl 25 mg every 6 hours as needed for itching and rash. 3. The patient will be on IV morphine 2 mg every 5 minutes as needed for chest pain and will be on nitro paste half inch to anterior chest wall q.i.d. The patient will also be on IV Zofran 4 mg every 8 hours for nausea and vomiting. 4. The patient will be on heparin 5000 units subQ q. 12 hours for DVT prophylaxis. 5. The patient will have bilateral carotid Doppler done this morning for evaluation of the syncopal attack. 6. The patient will have a CT of the brain without contrast done this morning to evaluate the syncopal episode the patient had prior to presentation. 7. The patient will remain n.p.o. for Lexiscan stress test this morning. JOB# [id number]/NTS
[2018-03-15] MEDS: NITRO-BID 2% TP SCH (07:00)
[2018-03-15] MEDS: MORPHINE IV PRN (08:45)
--- NOTE | 2018-03-15 09:59 | Treadmill Report ---
STRESS TEST ORDERING PHYSICIAN: Dr. Damion Ferrara. INDICATION: Chest pain. FINDINGS: There is no scintigraphic evidence of myocardial ischemia. The left ventricle is normal in size and systolic function. The left ventricular ejection fraction is measured at 62%. Normal wall motion and wall thickening is noted on gated imaging. CONCLUSION: Normal perfusion scan. JOB# [id number]/NTS
--- NOTE | 2018-03-15 11:37 | Discharge Summary ---
Providers - Providers Date of Admission: 03/12/18 23:30 Attending physician: PHIL MILLER MD 03/13/18 10:56 Consult to Physician [CONS] Routine Comment: Consulting Provider: MALIA MOJICA Physician Instructions: Reason For Exam: syncope, ?seizure , history of MS 03/14/18 08:49 Consult to Physician [CONS] Routine Comment: Consulting Provider: MIRNA ELLIS Physician Instructions: Reason For Exam: syncope Primary care physician: SOCIAL SCIENCES RESEARCH SCIENTIST Hospitalization Reason for admission: syncope Condition: Stable Pertinent studies: CT head, MRI head, MRA negative Cardiac stress test negative for acute ischemia Hospital course: 38-year-old female with past medical history significant for diabetes mellitus, MS presented to the emergency department with complaints of passed out , woke up on her stool, patient was incontinent to urine at that time. patient said had mild confusion after that. Her BF called 911 and she presented to [facility]. patient also complains substernal chest pain Syncope/passed out - Could be seizure, vasovagal or MS flare, patient was on IV Solu-Medrol - CT head was negative, neurology consulted and ordered EEG, MRI/MRA and all work up was negative - EEG showed no seizure activity - Neurology recommended cardiac cause of syncope and cardiology consulted. Chest pain - Cardiac enzymes are negative - EKG normal sinus rhythm, stress test is pending - Cardiology recommended no further workup - Patient chest pain subsided Diabetes mellitus -Continue metformin Leukocytosis Reactive Patient was hemodynamically stable at the time of discharge. Patient was advised to have follow-up with her primary care physician. Appropriate medication scripts were given at the time of discharge. Patient was counseled about weight loss, exercise and diet. Disposition: - TO HOME OR SELFCARE Time spent for discharge: 31 minutes - Discharge Diagnoses (1) Morbid obesity Status: Acute (2) Multiple sclerosis Status: Acute (3) Diabetes mellitus Status: Acute Qualifiers: Diabetes mellitus type: type 2 Diabetes mellitus complication status: without complication (4) Chest pain Status: Acute Qualifiers: Chest pain type: unspecified Qualified Code(s): R07.9 - Chest pain, unspecified (5) Syncope Status: Acute Qualifiers: Syncope type: unspecified Qualified Code(s): R55 - Syncope and collapse Core Measure Documentation - Palliative Care Palliative Care/ Comfort Measures: Not Applicable - Core Measures Any of the following diagnoses?: none Exam - Physical Exam Narrative exam: Not in cardiopulmonary distress. The patient is obese. Vital signs as documented. Head exam is unremarkable. No scleral icterus . Neck is without jugular venous distension, thyromegaly, or carotid bruits. Lungs are clear to auscultation. Cardiac exam reveals regular rate and Rhythm. First and second heart sounds normal. No murmurs, rubs or gallops. Abdominal exam reveals normal bowel sounds, no masses, no organomegaly and no aortic enlargement. Extremities are nonedematous and both femoral and pedal pulses are normal. YOUTH SERVICES LIBRARIAN: Alert and oriented 3. No focal weakness. - Constitutional Vitals: Temp Pulse Resp BP Pulse Ox 98.1 F 61 16 129/72 98 03/15/18 09:46 03/15/18 09:46 03/15/18 09:46 03/15/18 09:46 03/15/18 09:46 Plan Activity: no restrictions Weight Bearing Status: Full Weight Bearing Diet: low fat Additional Instructions: follow at [facility] in 1-2 weeks Follow up with: PRIMARY CARE, [Primary Care Provider] - 3-5 Days Prescriptions: metFORMIN [Glucophage] 500 mg PO BID #60 tablet Prednisone [predniSONE 10 mg (6-Day Pack, 21 Tabs)] 10 mg PO .TAPER #1 tab.pk
[2018-03-15 11:58] VITALS: BP 144/78
--- NOTE | 2018-03-15 12:45 | Consultation ---
History of Present Illness Consult date: 03/15/18 Consult reason: chest pain History of present illness: Patient is doing well this morning. She denies chest pain or shortness of breath. 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 denies: alcohol abuse (thanks alcohol once or twice a year), prescription drug abuse, IV drug use (marijuana in the past but not recently) Family history: stroke (in her mother), other (no MS or other neuromuscular disease. Epilepsy in her mother.) Medications and Allergies Allergies Allergy/AdvReac Type Severity Reaction Status Date / Time Penicillins Allergy Unknown Verified 03/12/18 19:18 Home Medications Medication Instructions Recorded Confirmed Last Taken Type Lisinopril [Zestril] 20 mg PO DAILY 03/13/18 03/13/18 03/12/18 10:00 History Metoprolol [Lopressor TAB] 25 mg PO DAILY 03/13/18 03/13/18 03/13/18 16:47 History Prednisone [predniSONE 10 mg 10 mg PO .TAPER #1 tab.ds.pk 03/15/18 Unknown Rx (6-Day Pack, 21 Tabs)] metFORMIN [Glucophage] 500 mg PO BID #60 tablet 03/15/18 Unknown Rx Active Meds: Active Medications Acetaminophen (Tylenol) 650 mg PO Q4H PRN PRN Reason: For Pain/Fever/Headache Last Admin: 03/15/18 08:45 Dose: 650 mg Albuterol (Proventil) 2.5 mg IH Q6HRT PRN PRN Reason: Shortness Of Breath Aspirin (Aspirin) 325 mg PO QDAY LIBERTAD Last Admin: 03/14/18 09:20 Dose: 325 mg Dextrose (D50w (25gm) Syringe) 50 ml IV PRN PRN PRN Reason: Hypoglycemia Diphenhydramine HCl (Benadryl) 25 mg IV Q6H PRN PRN Reason: Rash Last Admin: 03/13/18 00:10 Dose: 25 mg Heparin Sodium (Porcine) (Heparin) 5,000 unit SUB-Q Q12HR LIBERTAD Last Admin: 03/14/18 22:50 Dose: 5,000 unit Sodium Chloride (Nacl 0.9% 1000 Ml) 1,000 mls @ 999 mls/hr IV DIRECT [facility] Insulin Glargine (Lantus) 10 units SUB-Q QHS [facility] Last Admin: 03/14/18 22:50 Dose: 10 units Insulin Human Regular (Humulin R) 0 units SUB-Q Q4HR [facility]; Protocol Last Admin: 03/15/18 06:59 Dose: 1 units Methylprednisolone Sodium Succinate (Solu-Medrol) [address] [facility] Last Admin: 03/15/18 07:00 Dose: 60 mg Morphine Sulfate (Morphine) 2 mg IV Q4H PRN PRN Reason: Chest Pain Last Admin: 03/15/18 08:45 Dose: 2 mg Nicotine (Habitrol) [address] [facility] Last Admin: 03/14/18 09:20 Dose: 21 mg Nitroglycerin (Nitro-Bid 2%) 0.[address] [facility]; Protocol Last Admin: 03/15/18 07:00 Dose: Not Given Ondansetron HCl (Zofran) 4 mg IV Q8H PRN PRN Reason: Nausea And Vomiting Last Admin: 03/14/18 12:23 Dose: 4 mg Review of Systems All systems: negative Physical Examination Vital Signs Pulse Ox 99 03/12/18 19:07 General appearance: no acute distress Neck: Positive: neck supple Cardiac: Positive: Reg Rate and Rhythm Lungs: Positive: Normal Exam Results 03/14/18 06:32 03/14/18 06:27 Assessment and Plan Syncope No events on tele Normal 12 lead ECG, normal QT interval Normal MPI No acute events on brain MRI Normal EEG Negative D-Dimer Multiple sclerosis Steroid induced hypweglycemia Steroid induced leukocytosis Hyponatremia Recommendations: No further cardiac work-up is needed
== END 2018-03-15 15:54 | disposition home or self-care (01) | DRG 59 ==
LOC: ED 17:43 → 4A 23:30
PROVIDERS: ADMIT Internal Medicine; ATTEND Internal Medicine
PROC: 4A00X4Z Measurement of Central Nervous Electrical Activity, External Approach (ICD-10-PCS; principal; 2018-03-13)
DX: G35 Multiple sclerosis (principal); Z68.42 Body mass index [BMI] 45.0-49.9, adult; E11.9 Type 2 diabetes mellitus without complications; R55 Syncope and collapse; R07.89 Other chest pain; D72.829 Elevated white blood cell count, unspecified; E66.01 Morbid (severe) obesity due to excess calories; I10 Essential (primary) hypertension; Z90.49 Acquired absence of other specified parts of digestive tract; K08.409 Partial loss of teeth, unspecified cause, unspecified class; Z82.49 Family history of ischemic heart disease and other diseases of the circulatory system; Z88.0 Allergy status to penicillin; E78.5 Hyperlipidemia, unspecified; Z87.891 Personal history of nicotine dependence; Z82.3 Family history of stroke; Z82.0 Family history of epilepsy and other diseases of the nervous system; Z79.82 Long term (current) use of aspirin; Z79.4 Long term (current) use of insulin; Z79.899 Other long term (current) drug therapy
CPT/HCPCS: 36415; 70450; 70551; 71045; 78452; 80048; 82306; 82550; 82553; 82962; 84484; 85007; 85025; 85379; 85610; 85730; 93005; 93010; 93017; 93880; 95819; 99285; A9502; J1200; J1644; J1815; J2060; J2270; J2405; J2785; J2930; J7030